=== PATIENT | male | born 1985 | race African-American/Black ===

== ENCOUNTER 2016-11-27 05:03 | Emergency (ER) | payer SELFPAY ==
[~2016-11-27] VITALS: Ht 185.4 cm; Wt 75.0 kg
[~2016-11-27 05:03] MED LIST: DICY1TAB26 PO; RANI150 PO; ZOFR4TAB3 PO
[2016-11-27 05:06] VITALS: BP 141/92; PULSE 92; RESP 14; TEMP 98.5; O2SAT 96
[2016-11-27] MEDS ORDERED: TETANUS/DIPHTHERIA TOXOID ADULT 0.5 ML VIAL IM ONE (05:30)
[2016-11-27] MEDS ORDERED: LIDOCAINE 1%/EPINEPHrine 1:100,000 SOLN 20 ML VIAL INFIL ONE (05:30)
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
== END 2016-11-27 06:39 | disposition home or self-care (01) ==
LOC: NEPB 05:03
DX: S01.01XA Laceration without foreign body of scalp, initial encounter (principal); W20.8XXA Other cause of strike by thrown, projected or falling object, initial encounter; Y93.89 Activity, other specified; Y92.511 Restaurant or cafe as the place of occurrence of the external cause; Z23 Encounter for immunization; Z72.0 Tobacco use
CPT/HCPCS: 12001; 90471; 90714

== ENCOUNTER 2016-12-06 14:00 | Emergency (ER) | payer SELFPAY ==
[2016-12-06 14:01] VITALS: BP 130/70; PULSE 74; RESP 16; TEMP 97.9; O2SAT 95
== END 2016-12-06 14:41 | disposition left against medical advice (07) ==
LOC: NED 14:00
DX: R68.89 Other general symptoms and signs (principal)
CPT/HCPCS: 99281

== ENCOUNTER 2017-04-06 11:04 | Emergency (ER) | payer OTHER ==
[~2017-04-06] VITALS: Ht 185.4 cm; Wt 72.0 kg
[2017-04-06 11:07] VITALS: BP 129/84; PULSE 94; RESP 15; TEMP 98.2; O2SAT 98
[2017-04-06] MEDS ORDERED: DILA8TAB4 PO (12:38)
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
[2017-04-06] MEDS ORDERED: LIDOCAINE HCL 2% 50 ML VIAL ONE (12:40)
[2017-04-06] MEDS ORDERED: MORPHINE SULFATE 8 MG/ML INJ IV PUSH ONE (12:45)
[2017-04-06] MEDS ORDERED: SODIUM CHLORIDE 0.9% FLUSH 10 ML FLUSH IVF PRN (12:45)
[2017-04-06] MEDS ORDERED: TETANUS/DIPHTHERIA TOXOID ADULT 0.5 ML VIAL IM ONE (12:45)
[2017-04-06] MEDS ORDERED: LIDOCAINE HCL 2% 20 ML VIAL INFIL ONE (12:45)
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
[2017-04-06 13:27] LABS: AUTOMATED NEUTROPHIL # 11.7 TH/MM3 (1.8-7.7); BASOPHIL % 0.2 % (0.0-2.0); EOSINOPHIL % 0.1 % (0.0-4.0); HEMATOCRIT 37.9 % (39.0-51.0); HEMO FLAGS DIFF FINAL; LYMPHOCYTE # 0.8 TH/MM3 (1.0-4.8); MEAN CELL VOLUME 79.6 FL (80.0-100.0); MEAN CORPUSCULAR HEMOGLOBIN 26.8 PG (27.0-34.0); MEAN CORPUSCULAR HGB CONC 33.7 % (32.0-36.0); MONO % 8.8 % (0.0-8.0); NEUT % 84.9 % (16.0-70.0); PLATELET COUNT 182 TH/MM3 (150-450); RED BLOOD COUNT 4.76 MIL/MM3 (4.50-5.90); RED CELL DISTRIBUTION WIDTH 15.9 % (11.6-17.2); WHITE BLOOD COUNT 13.8 TH/MM3 (4.0-11.0)
[2017-04-06 13:38] LABS: APTT (PATIENT) 21.2 SEC (24.3-30.1); PROTHROMBIN TIME - PATIENT 11.5 SEC (9.8-11.6)
[2017-04-06 13:57] LABS: BICARBONATE 26.7 MEQ/L (21.0-32.0); POTASSIUM 3.9 MEQ/L (3.5-5.1)
[2017-04-06] MEDS ORDERED: IOHEXOL 350 MG/ML 10 ML VIAL (for RAD DIAG) IV ONE (14:28)
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
[2017-04-06] MEDS ORDERED: TRAM50TA PO (15:05)
[2017-04-06] MEDS ORDERED: IBUP800T23 PO (15:13)
[2017-04-06] MEDS ORDERED: CYCL1TAB29 PO (15:13)
[2017-04-06 15:25] VITALS: BP 125/87
== END 2017-04-06 15:30 | disposition home or self-care (01) ==
LOC: NEPD 11:04
DX: S41.012A Laceration without foreign body of left shoulder, initial encounter (principal); S61.011A Laceration without foreign body of right thumb without damage to nail, initial encounter; R91.1 Solitary pulmonary nodule; S09.90XA Unspecified injury of head, initial encounter; M79.1 Myalgia; V18.4XXA Pedal cycle driver injured in noncollision transport accident in traffic accident, initial encounter; Z79.899 Other long term (current) drug therapy; Z23 Encounter for immunization
CPT/HCPCS: 70450; 71020; 71260; 72125; 73030; 73130; 74177; 80048; 85025; 85610; 85730; 90471; 90714; 96374; 99285; J2270; Q9967

== ENCOUNTER 2017-04-07 22:42 | Emergency (ER) | payer OTHER ==
[~2017-04-07] VITALS: Ht 185.4 cm; Wt 72.0 kg
[~2017-04-07 22:42] MED LIST changes: +CYCL1TAB29 PO; -DICY1TAB26 PO; +DILA8TAB4 PO; +IBUP800T23 PO; -RANI150 PO; +TRAM50TA PO; -ZOFR4TAB3 PO
[2017-04-07 22:48] VITALS: BP 128/59; PULSE 93; RESP 16; TEMP 98.9; O2SAT 98
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
[2017-04-07] MEDS ORDERED: IOHEXOL 350 MG/ML 10 ML VIAL (for RAD DIAG) IV ONE (23:45)
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
[2017-04-08 01:22] VITALS: BP 127/62; PULSE 90; RESP 18; O2SAT 100
== END 2017-04-08 01:24 | disposition home or self-care (01) ==
LOC: NEPC 22:42
DX: R10.9 Unspecified abdominal pain (principal); R19.7 Diarrhea, unspecified; K76.9 Liver disease, unspecified; S39.81XD Other specified injuries of abdomen, subsequent encounter; S61.011D Laceration without foreign body of right thumb without damage to nail, subsequent encounter; Z79.899 Other long term (current) drug therapy; Y93.55 Activity, bike riding
CPT/HCPCS: 74177; 99285; Q9967

== ENCOUNTER 2017-04-12 16:23 | Emergency (ER) | payer OTHER ==
[~2017-04-12] VITALS: Ht 185.4 cm; Wt 70.0 kg
[2017-04-12 16:24] VITALS: BP 114/56; PULSE 80; RESP 15; TEMP 98.1; O2SAT 98
--- NOTE | 2017-04-12 16:32 | PD ---
Physical Exam Time Seen by Provider: 16:32 Narrative 31 y/o male recently seen here with laceration to R thumb presents today for evaluation of wound dehiscence. Vital signs reviewed. Seen at triage desk. Awaiting bed placement. Data Data Last Documented VS Vital Signs Date Time Temp Pulse Resp B/P Pulse Ox O2 Delivery O2 Flow Rate FiO2 04/12/17 16:24 98.1 80 15 114/56 98 MDM Medical Record Reviewed: Yes Supervised Visit with VIOLETA: Wil Harrington Apr 12, 2017 16:32
[2017-04-13] MEDS ORDERED: CEPH500C PO (19:56)
== END 2017-04-12 17:46 | disposition left against medical advice (07) ==
LOC: NED 16:23
DX: S61.011D Laceration without foreign body of right thumb without damage to nail, subsequent encounter (principal); X58.XXXD Exposure to other specified factors, subsequent encounter
CPT/HCPCS: 99281

== ENCOUNTER 2017-04-13 19:33 | Emergency (ER) | payer OTHER ==
[~2017-04-13] VITALS: Ht 185.4 cm; Wt 88.0 kg
[2017-04-13 19:34] VITALS: BP 128/64; PULSE 84; RESP 16; TEMP 98.3; O2SAT 98
[2017-04-13] MEDS ORDERED: CEPH500C PO (19:56)
[2017-04-13] MEDS ORDERED: CEPHALEXIN MONOHYDRATE 500 MG CAP PO ONE (20:00)
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
== END 2017-04-13 20:24 | disposition home or self-care (01) ==
LOC: NEPK 19:33
DX: T81.33XA Disruption of traumatic injury wound repair, initial encounter (principal); L08.9 Local infection of the skin and subcutaneous tissue, unspecified; B95.61 Methicillin susceptible Staphylococcus aureus infection as the cause of diseases classified elsewhere
CPT/HCPCS: 86403; 87070; 87186; 87205; 99283

== ENCOUNTER 2017-07-04 05:26 | Emergency (ER) | payer OTHER ==
[~2017-07-04] VITALS: Ht 188 cm; Wt 70.0 kg
[~2017-07-04 05:26] MED LIST changes: +CEPH500C PO
[2017-07-04 05:30] VITALS: BP 128/75; PULSE 85; RESP 16; TEMP 99.2; O2SAT 96
--- NOTE | 2017-07-04 06:51 | RADRPT ---
EXAM DATE/TIME: 07/04/2017 07:08 [facility] COMPARISON: No previous studies available for comparison. INDICATIONS : Pt was playing football 2 days ago- pain since MEDICAL HISTORY : None. SURGICAL HISTORY : None. ENCOUNTER: Initial ACUITY: 1 day PAIN SCORE: 7/10 LOCATION: Left Shoulder FINDINGS: Two view examination of the left shoulder demonstrates no evidence of fracture or dislocation. The g lenohumeral and acromioclavicular joints are maintained. Bony mineralization is normal. CONCLUSION: Unremarkable limited examination of the left shoulder. Gerardo Ferimn MD on July 04, 2017 at 6:49 Board Certified Radiologist. This report was verified electronically.
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
[2017-07-04] MEDS ORDERED: IBUPROFEN 600 MG TAB PO ONE (07:00)
== END 2017-07-04 07:15 | disposition home or self-care (01) ==
LOC: NEPE 05:26
DX: S46.912A Strain of unspecified muscle, fascia and tendon at shoulder and upper arm level, left arm, initial encounter (principal); W22.8XXA Striking against or struck by other objects, initial encounter; Y93.61 Activity, american tackle football
CPT/HCPCS: 73030; 99283

== ENCOUNTER 2017-07-22 19:39 | Inpatient (IN) | payer OTHER ==
[~2017-07-22] VITALS: Ht 188 cm; Wt 70.5 kg
[2017-07-22 19:56] VITALS: BP 142/81; PULSE 87; RESP 16; TEMP 98.5; O2SAT 98
[2017-07-22] MEDS ORDERED: SODIUM CHLOR 0.9% 1000 ML INJ 1,000 ML IV SCH ×2 (20:17)
[2017-07-22 20:20] VITALS: O2SAT 98
[2017-07-22] MEDS ORDERED: LIDOCAINE HCL 1% 50 ML VIAL INFIL ONE (20:30)
[2017-07-22] MEDS ORDERED: SODIUM CHLORIDE 0.9% FLUSH 10 ML FLUSH IV FLUSH PRN ×2 (20:30→22:45)
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
--- NOTE | 2017-07-22 20:31 | RADRPT ---
EXAM DATE/TIME: 07/22/2017 20:03 [facility] COMPARISON: No previous studies available for comparison. INDICATIONS : Right 4th digit hand pain from football injury today. MEDICAL HISTORY : None. SURGICAL HISTORY : None. ENCOUNTER: Initial ACUITY: 1 day PAIN SCORE: 10/10 LOCATION: Right 4th digit hand. FINDINGS: 3 views of the right fourth finger reveal acute dislocation at the proximal interphalangeal joint of the fourth finger. The middle phalanx lies dorsal relative to the more proximal phalanx. No discrete fracture. CONCLUSION: 1. Fourth PIP dislocation. Chauncey Ventura Jr., MD on July 22, 2017 at 20:29 Board Certified Radiologist. This report was verified electronically.
--- NOTE | 2017-07-22 21:07 | RADRPT ---
EXAM DATE/TIME: 07/22/2017 20:35 [place] COMPARISON: FINGER RIGHT 4TH DIGIT ([id number]), July 22, 2017, 20:03. INDICATIONS : Post reduction 4th digit. MEDICAL HISTORY : None. SURGICAL HISTORY : None. ENCOUNTER: Initial ACUITY: 1 day PAIN SCORE: 9/10 LOCATION: Right hand. FINDINGS: Successful reduction of the previously seen PIP dislocation of the fourth finger. No fracture seen. CONCLUSION: Successful reduction. Chauncey Ventura Jr., MD on July 22, 2017 at 21:05 Board Certified Radiologist. This report was verified electronically.
[2017-07-22 21:10] LABS: AUTOMATED NEUTROPHIL # 4.5 TH/MM3 (1.8-7.7); BASOPHIL # 0.2 TH/MM3 (0-0.2); BASOPHIL % 1.9 % (0.0-2.0); EOSINOPHIL # 0.1 TH/MM3 (0-0.4); EOSINOPHIL % 1.1 % (0.0-4.0); HEMATOCRIT 40.9 % (39.0-51.0); HEMO FLAGS DIFF FINAL; LYMPHOCYTE # 3.3 TH/MM3 (1.0-4.8); MEAN CELL VOLUME 80.6 FL (80.0-100.0); MEAN CORPUSCULAR HEMOGLOBIN 26.3 PG (27.0-34.0); MEAN CORPUSCULAR HGB CONC 32.6 % (32.0-36.0); MONO % 10.6 % (0.0-8.0); NEUT % 49.4 % (16.0-70.0); PLATELET COUNT 308 TH/MM3 (150-450); RED BLOOD COUNT 5.07 MIL/MM3 (4.50-5.90); RED CELL DISTRIBUTION WIDTH 14.4 % (11.6-17.2); WHITE BLOOD COUNT 8.9 TH/MM3 (4.0-11.0)
--- NOTE | 2017-07-22 21:11 | PD ---
Physical Exam Date Seen by Provider: Jul 22, 2017 Time Seen by Provider: 21:41 Narrative 31-year-old male came to the emergency room with history of finger injury while playing football. There was significant deformity of the finger. But while patient was in the waiting room he got lightheaded, diaphoretic and almost passed out. The finger was aligned with a digital block by the PA. Please refer to his procedure note. However given the syncopal episode there was EKG and blood test ordered. The EKG was read by me and shows type III Brugada syndrome. Patient says that his sister in sleep and there has been one or 2 other syncopal to that in the family as well. Given the abnormal EKG I'm deciding to observe him in the hospital and to be seen by the market research coordinator in the morning. I tried looking up his past medical record and there is no old EKG to compare with. Patient understands that he needs to stay. Awaiting for the hospitalist to call back. Data Data Last Documented VS Vital Signs Date Time Temp Pulse Resp B/P (MAP) Pulse Ox O2 Delivery O2 Flow Rate FiO2 07/22/17 22:15 66 20 126/75 (92) 98 Room Air 07/22/17 19:56 98.5 Orders Orders Finger ([id number]) (07/22/17 ) Basic Metabolic Panel (Bmp) (07/22/17 20:17) Complete Blood Count With Diff (07/22/17 20:17) Iv Access Insert/Monitor (07/22/17 20:17) Ecg Monitoring (07/22/17 20:17) Oximetry (07/22/17 20:17) Sodium Chlor 0.9% 1000 Ml Inj (Ns 1000 M (07/22/17 20:17) Sodium Chloride 0.9% Flush (Ns Flush) (07/22/17 20:30) Electrocardiogram (07/22/17 20:17) Sodium Chlor 0.9% 1000 Ml Inj (Ns 1000 M (07/22/17 20:17) Lidocaine 1% Inj (50 Ml) (Xylocaine 1% I (07/22/17 20:30) Finger ([id number]) (07/22/17 ) Splint Or Brace Apply/Monitor (07/22/17 21:05) Electrocardiogram (07/22/17 21:36) Admit Order (Ed Use Only) (07/22/17 22:20) Labs Laboratory Tests Test 07/22/17 20:30 White Blood Count 8.9 TH/MM3 Red Blood Count 5.07 MIL/MM3 Hemoglobin 13.3 GM/DL Hematocrit 40.9 % Mean Corpuscular Volume 80.6 FL Mean Corpuscular Hemoglobin 26.3 PG Mean Corpuscular Hemoglobin Concent 32.6 % Red Cell Distribution Width 14.4 % Platelet Count 308 TH/MM3 Mean Platelet Volume 7.6 FL Neutrophils (%) (Auto) 49.4 % Lymphocytes (%) (Auto) 37.0 % Monocytes (%) (Auto) 10.6 % Eosinophils (%) (Auto) 1.1 % Basophils (%) (Auto) 1.9 % Neutrophils # (Auto) 4.5 TH/MM3 Lymphocytes # (Auto) 3.3 TH/MM3 Monocytes # (Auto) 0.9 TH/MM3 Eosinophils # (Auto) 0.1 TH/MM3 Basophils # (Auto) 0.2 TH/MM3 CBC Comment DIFF FINAL Differential Comment Blood Urea Nitrogen 13 MG/DL Creatinine 1.60 MG/DL Random Glucose 77 MG/DL Calcium Level 8.7 MG/DL Sodium Level 139 MEQ/L Potassium Level 3.9 MEQ/L Chloride Level 104 MEQ/L Carbon Dioxide Level 31.1 MEQ/L Anion Gap 4 MEQ/L Estimat Glomerular Filtration Rate 62 ML/MIN MDM Supervised Visit with VIOLETA: Yes Interpretation(s) Twelve-lead EKG was reviewed by me. Normal sinus rhythm, bradycardia, normal axis, questionable type to provide a syndrome. Heart rate of 56 bpm. Narrative Course 10:21 PM I discussed the case with Dr. Botello who is the hospitalist financial analysis consultant and he wants the patient transferred to [facility] at the [facility]. Diagnosis Primary Impression: Abnormal EKG Additional Impressions: Episode of syncope Qualified Codes: R55 - Syncope and collapse Finger dislocation Qualified Codes: S63.259A - Unspecified dislocation of unspecified finger, initial encounter Admitting Information Admitting Physician Requests: Observation Scripts Hydrocodone-Acetaminophen ([place]) 5 Mg-325 Mg Tab 1 TAB PO Q6H Y for severe pain, #7 TAB 0 Refills Prov: Jerome Vela DO 07/23/17 Acetaminophen (Eq Acetaminophen) 325 Mg Tab 650 MG PO Q4H Y for pain 1-5 for 30 Days, #360 TAB Prov: Jerome Vela DO 07/23/17 Daisy Martin MD Jul 22, 2017 21:11
[2017-07-22 21:12] LABS: POTASSIUM 3.9 MEQ/L (3.5-5.1)
[2017-07-22 21:15] LABS: BICARBONATE 31.1 MEQ/L (21.0-32.0)
[2017-07-22 21:18] VITALS: BP 107/59; PULSE 58; RESP 20; O2SAT 99
[2017-07-22 22:15] VITALS: BP 126/75; PULSE 66; RESP 20; O2SAT 98
[2017-07-22] MEDS ORDERED: SODIUM CHLOR 0.45% 1000 ML INJ 1,000 ML IV SCH (22:34)
[2017-07-22] MEDS ORDERED: BISACODYL 10 MG SUPP RECTAL PRN (22:45)
[2017-07-22] MEDS ORDERED: SENNOSIDES 8.6 MG TAB PO PRN (22:45)
[2017-07-22] MEDS ORDERED: NALOXONE HCL 0.4 MG/ML AMP IV PUSH PRN (22:45)
[2017-07-22] MEDS ORDERED: ACETAMINOPHEN 325 MG TAB PO PRN (22:45)
[2017-07-22] MEDS ORDERED: ONDANSETRON HCL 4 MG/2 ML VIAL IVP PRN (22:45)
[2017-07-22] MEDS ORDERED: LACTULOSE SYRUP 20 GM/30 ML CUP PO PRN (22:45)
[2017-07-22] MEDS ORDERED: MAGNESIUM HYDROXIDE SUSP 30 ML CUP PO PRN (22:45)
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
[2017-07-23 00:27] VITALS: BP 114/64; PULSE 66; RESP 16; O2SAT 99
[2017-07-23 01:09] VITALS: BP 107/55; PULSE 60; RESP 20; TEMP 98.2; O2SAT 99
[2017-07-23 02:40] VITALS: BP 126/82; PULSE 58; RESP 16; TEMP 97.4; O2SAT 98
[2017-07-23 04:39] VITALS: BP 127/75; PULSE 68; RESP 16; TEMP 97.4; O2SAT 96
[2017-07-23 06:51] LABS: ANION GAP 8 MEQ/L (5-15); BICARBONATE 26.4 MEQ/L (21.0-32.0); BLOOD UREA NITROGEN 13 MG/DL (7-18); CHLORIDE 107 MEQ/L (98-107); GLOMERULAR FILTRATION RATE 91 ML/MIN (>89); POTASSIUM 3.8 MEQ/L (3.5-5.1); SODIUM (NA) 141 MEQ/L (136-145)
[2017-07-23 08:00] VITALS: BP 126/75; PULSE 72; RESP 14; TEMP 98.6; O2SAT 98
[2017-07-23] MEDS ORDERED: DOCUSATE SODIUM 50 MG/SENNA 8.6 MG TAB PO SCH (09:00)
[2017-07-23] MEDS ORDERED: SODIUM CHLORIDE 0.9% FLUSH 10 ML FLUSH IV FLUSH SCH (09:00)
--- NOTE | 2017-07-23 09:28 | MB ---
cc: FELIPA PHELPS MD DATE OF CONSULTATION 07/23/2017 HISTORY This is a 31-year-old gentleman who is admitted to hospital after suffering a near-syncopal episode. He was playing in an amateur football league and dislocated his finger. He came to the emergency room and in the process of having the dislocation reduced, became diaphoretic, lightheaded with a near-syncopal episode. He apparently was not on a monitor and no arrhythmias were seen and he quickly regained his bearings. No palpitations or chest pain was present. Electrocardiogram was done revealing a type 3 Brugada pattern and he was subsequently admitted for further evaluation. Electrolytes were done revealing some dehydration which has since been corrected with fluids. His creatinine was 1.60 which has been corrected down to 1.4 after fluids. Troponins were normal. Serum calcium and potassium were also normal. FAMILY HISTORY A family history of sudden is present. He does have a younger sister who developed a cardiomyopathy at age 16 and subsequently a year after heart transplantation. PAST MEDICAL HISTORY His past medical history has otherwise been unremarkable. MEDICATIONS He takes no medications. REVIEW OF SYSTEMS No previous episodes of syncope or light headedness have been present. SOCIAL HISTORY The patient does not smoke or drink. 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 PHYSICAL EXAM He is awake and alert. He is in no acute distress. VITAL SIGNS: His blood pressure is 127/75. He is afebrile. Pulse is 70 and regular. NECK: There is no neck vein distension. Carotids are normal. LUNGS: Clear. CARDIOVASCULAR: Exam reveals a regular rate and rhythm. There is no murmur noted. No gallop is present. ABDOMEN: Soft. There is no tenderness. EXTREMITIES: Reveal no edema and his finger is well reduced. ASSESSMENT The patient has had a near syncopal episode which is likely vasovagal in nature. Because of the intense pain, his dislocation and reduction, he has had a type Brugada by electrocardiographic criteria. I have discussed this with Dr. Diaz from the electrophysiology department and at this point in time, we will okay him for discharge and he will follow up Dr. Diaz as an outpatient for EP testing electively. MD RUEL Kennedy/ALYSSA /8:57 AM /9:11 AM
--- NOTE | 2017-07-23 10:03 | HHI.PR ---
Subjective Remarks No new complaints. Pt denies chest pain, no palpitations, no n/v, no diaphoresis. Pt denies further syncope since initial incident. Pt denies dizziness. Pt is eager for discharge. Objective Vitals Vital Signs Date Time Temp Pulse Resp B/P (MAP) Pulse Ox O2 Delivery O2 Flow Rate FiO2 07/23/17 04:39 97.4 68 16 127/75 (92) 96 07/23/17 02:40 97.4 58 16 126/82 (97) 98 07/23/17 01:39 84 16 98 07/23/17 01:09 98.2 60 20 107/55 (72) 99 07/23/17 00:27 66 16 114/64 (81) 99 Room Air 07/22/17 22:15 66 20 126/75 (92) 98 Room Air 07/22/17 21:18 58 20 107/59 (75) 99 Room Air 07/22/17 20:20 98 Room Air 07/22/17 19:56 98.5 87 16 142/81 (101) 98 07/23/17 07/23/17 07/24/17 15:00 23:00 07:00 Output Total 500 ml Balance -500 ml Output Urine Total 500 ml Result Diagram: 07/22/17 2030 07/23/17 0604 Imaging Last Impressions Finger X-Ray 07/22/17 0000 Signed Impressions: Service Date/Time: July 20:35 - CONCLUSION: Successful reduction. Chauncey Ventura Jr., MD Objective Remarks GENERAL: This is a well-nourished, well-developed patient, in no apparent distress. CARDIOVASCULAR: Regular rate and rhythm without murmurs, gallops, or rubs. RESPIRATORY: Clear to auscultation. Breath sounds equal bilaterally. No wheezes , rales, or rhonchi. GASTROINTESTINAL: Abdomen soft, non-tender, nondistended. Normal active bowel sounds MUSCULOSKELETAL: Extremities without clubbing, cyanosis, or edema. NEURO: Alert & Oriented x4 to person, place, time, situation. Moves all ext x4 A/P Problem List: (1) Episode of syncope ICD Codes: R55 - Syncope and collapse Status: Acute Plan: - syncopal episode likely vasovagal d/t finger fracture - Pt seen by Cardiology, Dr. Ventura. - Case discussed between Dr. Ventura and Dr. Diaz, [employer]. - Case d/w Dr. Ventura this AM (07/23/17) - Pt cleared by Cardiology for discharge - Pt to f/u with Dr. Diaz in one week. - telemetry reviewed (2) Abnormal EKG ICD Codes: R94.31 - Abnormal electrocardiogram [ECG] [EKG] Status: Acute Plan: - see above (3) Finger dislocation ICD Codes: S63.259A - Unspecified dislocation of unspecified finger, initial encounter Status: Acute Plan: - placed in splint - Pt to f/u with Hand Surgery, next week. - tylenol prn - norco 5/325mg prn severe pain, #5, no RF - f/u with Sac Hand Surgery, next week Problem Qualifiers (1) Episode of syncope: Qualified Codes: R55 - Syncope and collapse (2) Finger dislocation: Qualified Codes: S63.259A - Unspecified dislocation of unspecified finger, initial encounter Jerome Vela DO Jul 23, 2017 10:03
[2017-07-23] MEDS ORDERED: NORC5TAB PO (10:11)
[2017-07-23] MEDS ORDERED: ACET325T15 PO (10:11)
--- NOTE | 2017-07-23 18:09 | EKG ---
Date Performed: 07/22/2017 Time Performed: 21:36:58 PTAGE: 31 years EKG: SINUS BRADYCARDIA POSSIBLE RIGHT VENTRICULAR CONDUCTION DELAY EARLY REPOLARIZATION TALL T-W AVES, SUGGESTS HYPERKALEMIA ABNORMAL ECG INTERPRETATION BASED ON A DEFAULT AGE OF 41 YEARS NO PREVIOUS TRACING DOCTOR: Tanvi Diaz Interpretating Date/Time 07/23/2017 18:07:55
--- NOTE | 2017-07-23 18:11 | EKG ---
Date Performed: 07/22/2017 Time Performed: 20:58:14 PTAGE: 31 years EKG: SINUS BRADYCARDIA POSSIBLE RIGHT VENTRICULAR CONDUCTION DELAY EARLY REPOLARIZATION BORDERLI NE ECG NO PREVIOUS TRACING DOCTOR: Tanvi Diaz Interpretating Date/Time 07/23/2017 18:09:27
== END 2017-07-23 11:47 | disposition home or self-care (01) | DRG 312 ==
LOC: PHEFT 19:39 → PHEDA 22:22 → HCIS 07-23 02:26
PROVIDERS: ADMIT Internal Medicine; ATTEND Internal Medicine
PROC: 0RSWXZZ Reposition Right Finger Phalangeal Joint, External Approach (ICD-10-PCS; principal; 2017-07-22)
DX: R55 Syncope and collapse (principal); I95.9 Hypotension, unspecified; E86.0 Dehydration; I49.8 Other specified cardiac arrhythmias; S63.254A Unspecified dislocation of right ring finger, initial encounter; Y93.61 Activity, american tackle football; Y92.321 Football field as the place of occurrence of the external cause
CPT/HCPCS: 26770; 73140; 80048; 84484; 85025; 93005; 96360; 96361; J7030